=== PATIENT | female | born 1995 ===

== ENCOUNTER 2017-06-13 06:13 | Emergency (ER) | payer OTHER ==
[~2017-06-13] VITALS: Ht 154.9 cm; Wt 72.6 kg
[2017-06-13] MEDS ORDERED: Zofran Odt4 MG SL (09:07)
== END 2017-06-13 09:08 | disposition home or self-care (01) ==
LOC: ER 06:13
DX: J11.1 Influenza due to unidentified influenza virus with other respiratory manifestations (principal)
CPT/HCPCS: 87081; 87430; 99283